=== PATIENT | female | born 1990 | race Asian ===

== ENCOUNTER 2018-04-05 07:48 | Outpatient (CLI) | payer OTHER ==
[2018-04-05 12:52] LABS: BASOPHILS % (AUTO) 0.5 %; EOSINOPHILS # (AUTO) 0.3 10^3/uL (0.0-0.7); EOSINOPHILS % (AUTO) 2.8 %; HGB - HEMOGLOBIN 13.1 g/dL (12.0-16.0); LYMPHOCYTES # (AUTO) 2.5 10^3/uL (1.5-3.5); LYMPHOCYTES % (AUTO) 26.4 %; MEAN CORPUSCULAR HEMOGLOBIN 31.7 pg (27.0-31.0); MEAN CORPUSCULAR HGB CONC 34.7 g/dL (32.0-36.0); MEAN CORPUSCULAR VOLUME 91.5 fL (81.0-99.0); MEAN PLATELET VOLUME 8.3 fL (7.9-10.8); MONOCYTES # (AUTO) 0.5 10^3/uL (0.0-1.0); MONOCYTES % (AUTO) 4.9 %; NEUTROPHILS # (AUTO) 6.1 10^3/uL (1.5-6.6); NEUTROPHILS % (AUTO) 65.4 %; PLT - PLATELET COUNT 278 10^3/uL (130-450); RED BLOOD COUNT 4.12 10^6/uL (4.20-5.40); WHITE BLOOD COUNT 9.3 x10^3/uL (4.8-10.8)
[2018-04-05 12:55] LABS: BILIRUBIN,URINE NEGATIVE (NEGATIVE); GLUCOSE, URINE (UA) NEGATIVE (NEGATIVE); KETONES,URINE (UA) NEGATIVE (NEGATIVE); LEUKOCYTE ESTERASE, URINE LARGE (NEGATIVE); NITRITE,URINE NEGATIVE (NEGATIVE); OCCULT BLOOD,URINE TRACE-LYSE (NEGATIVE); PH,URINE 7.5 PH (5.0-7.5); PROTEIN,URINE NEGATIVE (NEGATIVE); UROBILINOGEN,URINE 0.2 (NORMAL) E.U./dL (NORMAL)
[2018-04-05 13:13] LABS: CLARITY,URINE CLOUDY (CLEAR); RBC,URINE 0-5 /HPF (0-5)
[2018-04-05 13:14] LABS: AMORPHOUS SEDIMENT,UR Few /LPF; BACTERIA,URINE Few /HPF (None Seen); SQUAMOUS EPITHELIAL CELL,UR MANY Squamous (<= Few)
[2018-04-06 14:52] LABS: HIV AG/AB 4TH GEN NON-REACTIVE (NON-REACTIVE)
[2018-04-06 15:15] LABS: HEPATITIS B SURFACE ANTIGEN NON-REACTIVE (NON-REACTIVE); HEPATITIS C ANTIBODY NON-REACTIVE (NON-REACTIVE)
== END 2018-04-05 07:49 | disposition home or self-care (01) ==
LOC: LAB.WCP 07:48
PROVIDERS: ATTEND Nurse Practitioner Obstetrics & Gynecology
DX: Z36.9 Encounter for antenatal screening, unspecified (principal)
CPT/HCPCS: 36415; 81001; 81599; 85025; 86592; 86762; 86803; 86850; 86900; 86901; 87340; 87389

== ENCOUNTER 2018-06-28 12:33 | Outpatient (CLI) | payer OTHER ==
--- NOTE | 2018-06-28 15:37 | Ultrasound Report ---
Reason: ENCTR FOR SCREENING Procedure Date: 06/28/2018 Accession Number: [id number] / [id number] Procedure: US - OB Detailed Eval CPT Code: FULL RESULT: EXAM: COMPLETE OBSTETRICAL ULTRASOUND EXAM DATE: 06/28/2018 01:04 PM. CLINICAL HISTORY: anatomic survey. COMPARISON: None. TECHNIQUE: Real-time sonographic evaluation of the fetus performed by the vegetable vendor. Multiple apprenticeship training representative static images were saved for review. DATING: EGA 22 weeks 2 days with MELINDA 10/30/2018 based on last menstrual period as provided on the order. EGA 21 weeks 3 days with MELINDA 11/05/2018 based on the current ultrasound. GENERAL EVALUATION Mcmahon . Cardiac activity: 152 bpm. movement: Visualized. Presentation: Variable Placenta: Anterior position. No evidence for previa. Umbilical cord: 3 vessel cord. Central placental cord origin. Amniotic fluid: 13.1 MVP 3.6 cm. BIOMETRY Bi-Parietal Diameter (BPD): 5 cm, 21 weeks 2 days Head Circumference (HC): 19.4 cm, 21 weeks 4 days Abdominal Circumference (AC): 16.3 cm, 21 weeks and 3 days Femur Length (FL): 3.6 cm, 21 weeks and 4 days Estimated Weight: 425 gm, 12th percentile for 22 weeks 2 days. ANATOMY The intracranial structures, profile, face/nose/lips, spine, 4 chamber heart and outflow tracts, stomach, abdominal wall and cord insertion, diaphragm, kidneys, bladder, and extremities were visualized and demonstrate no abnormality. MATERNAL STRUCTURES Uterus: Unremarkable. Cervix: Long and closed. Transabdominal length 5.8 cm. Right ovary/adnexa: Unremarkable. Left ovary/adnexa: Unremarkable. Free fluid: None. IMPRESSION: 1. Mcmahon live intrauterine with gestational age 21 weeks and 3 days based on the current ultrasound which does not match the estimated gestational age based on the provided last menstrual period alone. 2. Correlate today's estimated weight and sonographic age to the established due date/potentially available first trimester dating ultrasound to determine absence or presence of appropriate growth. 3. Normal anatomic survey. No anatomic abnormalities are detected at this time. RADIA
== END 2018-06-28 12:34 | disposition home or self-care (01) ==
LOC: DI 12:33
PROVIDERS: ATTEND Nurse Practitioner Obstetrics & Gynecology
DX: Z36.9 Encounter for antenatal screening, unspecified (principal); Z3A.21 21 weeks gestation of pregnancy
CPT/HCPCS: 76811

== ENCOUNTER 2018-07-26 10:10 | Outpatient (CLI) | payer OTHER ==
[2018-07-26 19:06] LABS: HGB - HEMOGLOBIN 12.9 g/dL (12.0-16.0); MEAN CORPUSCULAR HEMOGLOBIN 33.5 pg (27.0-31.0); MEAN CORPUSCULAR HGB CONC 34.1 g/dL (32.0-36.0); MEAN CORPUSCULAR VOLUME 98.2 fL (81.0-99.0); MEAN PLATELET VOLUME 7.9 fL (7.9-10.8); RED BLOOD COUNT 3.85 10^6/uL (4.20-5.40); RED CELL DISTRIBUTION WIDTH 13.4 % (12.0-15.0); WHITE BLOOD COUNT 12.7 x10^3/uL (4.8-10.8)
== END 2018-07-26 10:11 | disposition home or self-care (01) ==
LOC: LAB.WCP 10:10
PROVIDERS: ATTEND Nurse Practitioner Obstetrics & Gynecology
DX: Z36.9 Encounter for antenatal screening, unspecified (principal)
CPT/HCPCS: 36415; 82950; 85025; 85027; 86850

== ENCOUNTER 2018-10-11 08:00 | Outpatient (CLI) | payer OTHER | END 2018-10-11 23:59 | disposition home or self-care (01) | LOC: LAB.R 08:00 | PROVIDERS: ATTEND Registered Nurse | DX: Z33.1 Pregnant state, incidental (principal) | CPT/HCPCS: 87491; 87591; 87797 ==

== ENCOUNTER 2018-10-11 08:42 | Outpatient (CLI) | payer OTHER ==
[2018-10-12 12:26] LABS: HEPATITIS C ANTIBODY NON-REACTIVE (NON-REACTIVE); HIV AG/AB 4TH GEN NON-REACTIVE (NON-REACTIVE)
== END 2018-10-11 23:59 | disposition home or self-care (01) ==
LOC: LAB.WCP 08:42
PROVIDERS: ATTEND Registered Nurse
DX: Z33.1 Pregnant state, incidental (principal)
CPT/HCPCS: 36415; 81599; 86803; 87389

== ENCOUNTER 2018-10-31 23:35 | Inpatient (IN) | payer OTHER, MEDICAID ==
[2018-11-01] MEDS ORDERED: LACTATED RINGERS 1,000 ML IV ONE (00:31)
[2018-11-01 01:03] LABS: BASOPHILS # (AUTO) 0.2 10^3/uL (0.0-0.1); BASOPHILS % (AUTO) 1.6 %; EOSINOPHILS # (AUTO) 0.3 10^3/uL (0.0-0.7); EOSINOPHILS % (AUTO) 2.5 %; HGB - HEMOGLOBIN 13.9 g/dL (12.0-16.0); LYMPHOCYTES # (AUTO) 2.2 10^3/uL (1.5-3.5); MEAN CORPUSCULAR HEMOGLOBIN 33.8 pg (27.0-31.0); MEAN CORPUSCULAR HGB CONC 34.9 g/dL (32.0-36.0); MEAN CORPUSCULAR VOLUME 96.9 fL (81.0-99.0); MEAN PLATELET VOLUME 8.1 fL (7.9-10.8); MONOCYTES # (AUTO) 0.9 10^3/uL (0.0-1.0); MONOCYTES % (AUTO) 7.1 %; NEUTROPHILS # (AUTO) 9.4 10^3/uL (1.5-6.6); NEUTROPHILS % (AUTO) 71.8 %; PLT - PLATELET COUNT 278 10^3/uL (130-450); RED BLOOD COUNT 4.12 10^6/uL (4.20-5.40); RED CELL DISTRIBUTION WIDTH 12.6 % (12.0-15.0); WHITE BLOOD COUNT 13.1 x10^3/uL (4.8-10.8)
[2018-11-01] MEDS ORDERED: OXYTOCIN/SODIUM CHLORIDE 500 ML IV ONE (01:29)
[2018-11-01] MEDS: LACTATED RINGERS 1,000 ML IV SCH ×4 (01:32→11:25)
[2018-11-01] MEDS ORDERED: ROPIVACAINE 0.2% PF 20 ML AMPULE ONE (02:15)
[2018-11-01] MEDS ORDERED: fentaNYL 100 MCG/2 ML VIAL ONE ×2 (02:16→13:39)
[2018-11-01] MEDS ORDERED: SODIUM CHLORIDE 0.9% 250 ML IV ONE (02:17)
[2018-11-01] MEDS: OXYTOCIN/SODIUM CHLORIDE 500 ML IV SCH ×2 (02:44→17:31)
[2018-11-01] MEDS ORDERED: fentaNYL 250 MCG/5 ML VIAL ONE (02:52)
[2018-11-01] MEDS ORDERED: BUPIVACAINE 0.75% MPF 30 ML VIAL ONE (02:53)
[2018-11-01] MEDS ORDERED: fent/BUPIV 2 MCG/0.125% 250 ML EP PRN (03:14)
[2018-11-01] MEDS ORDERED: ONDANSETRON 4 MG/2 ML VIAL IVP PRN (03:14)
[2018-11-01] MEDS ORDERED: ePHEDrine 50 MG/ML VIAL IVP PRN (03:14)
[2018-11-01] MEDS ORDERED: METOCLOPRAMIDE 10 MG/2 ML VIAL IVP PRN (03:14)
[2018-11-01] MEDS ORDERED: diphenhydrAMINE INJ 50 MG/ML VIAL IVP PRN (03:14)
[2018-11-01] MEDS ORDERED: NALOXONE 0.4 MG/ML VIAL IVP PRN (03:14)
[2018-11-01] MEDS ORDERED: LACTATED RINGERS 500 ML IV ONE (03:14)
[2018-11-01] MEDS ORDERED: NALBUPHINE 10 MG/ML AMP IVP PRN (03:14)
--- NOTE | 2018-11-01 03:14 | ANESTHESIA ---
Pre-Anesthesia VS, & Labs - Diagnosis term labor, IUP - Procedure CANDELARIA placement Vital Signs: Temp Pulse Resp BP Pulse Ox 37.1 C 89 18 112/75 100 11/01/18 00:01 11/01/18 00:01 11/01/18 00:01 11/01/18 00:01 11/01/18 00:01 Height 5 ft 3 in Weight (kg) 65.136 kg - NPO >8 hours Last Fluid Intake: t/o day - Is Patient ?: Yes - Lab Results Current Lab Results: Laboratory Tests 11/01/18 00:50: WBC 13.1 H, RBC 4.12 L, Hgb 13.9, Hct 39.9, MCV 96.9, MCH 33.8 H , MCHC 34.9, RDW 12.6, Plt Count 278, MPV 8.1, Neut # (Auto) 9.4 H, Lymph # (Auto) 2.2, Dickson # (Auto) 0.9, Eos # (Auto) 0.3, Baso # (Auto) 0.2 H, Absolute Nucleated RBC 0.01, Nucleated RBC % 0.1 Lab results reviewed: Yes Fish Bones: 11/01/18 00:50 Home Medications and Allergies Active Medications Lactated Ringer's (Lr) 1,000 mls @ 150 mls/hr IV .Q6H40M ALEXIS Last Admin: 11/01/18 02:36 Dose: 150 mls/hr Oxytocin/Sodium Chloride (Pitocin/Sodium Chloride) 500 mls @ 1 mls/hr IV TITR ALEXIS; Protocol Last Admin: 11/01/18 02:44 Dose: 1 milliunit/min, 1 mls/hr Sodium Chloride (Normal Saline Flush 0.9%) 10 ml IVP PRN PRN PRN Reason: NEEDED PER PROVIDER ORDERS Anes History & Medical History - Anesthetic History Anesthesia Complications: reports: No previous complications Family history of Anesthesia Complications: Denies Family history of Malignant Hyperthermia: Denies - Medical History Smoking Status: Never smoker Exam General: Alert, Oriented x3, Cooperative Dental: WNL Mouth Openin Fingerbreadth Neck Mobility: Normal Mallampati classification: II Thyromental Distance: 4-6 cm Respiratory: No respiratory distress Cardiovascular: Regular rate Neurological: Normal speech Mental/Cognitive Status: Alert/Oriented X3, Normal for patient Plan Anesthesia Type: Epidural Consent for Procedure(s) Verified and Reviewed: Yes Code Status: Attempt Resuscitation ASA classification: 2-Mild systemic disease Is this case an emergency?: No
--- NOTE | 2018-11-01 04:38 | HISTORY & PHYSICAL EXAMINATION ---
Admit History - Visit Reason Visit Reason: Bloody show - : 2 Parity: 1 Premature: 0 Ectopic: 0 : 0 Care: positive: [facility] Risk/History: positive: None Complications This : positive: None Smoking Status: Never smoker - Mother's Labs Mother's Blood Type: positive: A Mother's RH: positive: Positive GBS: positive: Group B Step Negative Rubella Status: positive: Immune Meds/Allgy - Allergies Allergies/Adverse Reactions: Allergies Allergy/AdvReac Type Severity Reaction Status Date / Time No Known Drug Allergies Allergy Verified 11/01/18 04:00 Review of Systems - Constitutional Constitutional: denies: Fatigue, Fever, Chills, Malaise, Weakness - Eyes Eyes: denies: Pain, Blurred vision, Spots in vision, Dipolpia - Cardiovascular Cariovascular: denies: Irregular heart rate, Palpitations, Chest pain, Edema - Respiratory Respiratory: denies: Cough, Wheezing, SOB at rest, SOB with exertion - Gastrointestinal Gastrointestinal: denies: Abdominal pain, Constipation, Diarrhea, Change in bowel habits - Integumentary Integumentary: denies: Rash, Pruritis - Neurological Neurological: denies: Headache - Psychiatric Psychiatric: denies: Depression, Anxiety Physical - Abdominal Exam Vital Signs: Temp Pulse Resp BP Pulse Ox 37.1 C 89 18 112/75 100 11/01/18 00:01 11/01/18 00:01 11/01/18 00:01 11/01/18 00:01 11/01/18 00:01 Contraction Frequency (min/apart): 2-3 Contraction Intensity: positive: Moderate Uterine Resting Tone: positive: Soft - Monitoring Heart Rate Baseline: 150 Strip Review: positive: Category I - Presentation Presentation: positive: Vertex - Vaginal Exam Membranes: positive: Membranes intact Dilation (in cm): 2 Effacement (%): 70 Station: positive: -3 Cervical Position: positive: Posterior - Speculum Exam Speculum Exam Performed: positive: No Plan for Labor - Plan For Labor I expect patient to be DC'd or transferred within 96 hours.: Yes Plan for Labor: HPI: This 27yo @ 40.1wks gestation phones through the answering service at approximately 2250 on 10/31/2018 with c/o large amount of bright red vaginal bleeding. She was instructed to present to labor and delivery. She arrived to [facility] at 2350 and was noted to be 2-3/70/unengaged, posterior, vertex. No obvious vaginal bleeding noted and pt states with initial call she thought the bleeding appeared more since it was in the toilet but it did make her nervous. She reports +FM and denies leakage of fluid. She denies HATFIELD, visual disturbances, RUQ or epigastric pain. She was found to contract every 2 minutes with soft resting tone and pt rates the contractions 7/10 on a pain scale. FHR baseline 150s, moderate variability, + accels, no decels. Recheck 1 hour later reveals unchanged cervix. Contraction frequency decreased to every 4-6 and patient requests labor augmentation secondary to full term gestation, discomfort, and current weather conditions. In addition, she requests an epidural prior to initi ation of any further intervention. She was admitted to [facility] for active management. She has received regular care with [facility] through the duration of her . She presented at 8wks gestation at which time her dating was confirmed by limited bedside ultrasound which was c/w LMP dating. Her has been uncomplicated. Dating criteria: 1. LMP: Sure - 02/17/2018 2. First ultrasound: 03/19/2018 @ 8wks gestation - agrees OB Hx: G1: 2011, Female, 7lbs 6 oz, G2: Current PMHx: No significant Surgical Hx: none Family Hx: no significant Social hx: never smoker, no ETOH or IVDA. Works at [employer]. . Last pap 08/09/2018 WNL, GC/CT negative. No Hx abnormal. Medications: vitamin Allergies: NKDA Immunizations: Influenza 06/14/2018 Tdap 08/09/2018 Labs: A+, antibody neg Hgb 13.1; Hct 37.7; PLT 278 Hep B neg RPR neg Hep C neg Rubella immune HIV negative GC/CT neg 28wk labs: 1 hour GTT 114 Hgb 12.9 Antibody neg 36wk labs: GBS neg GC/CT neg HIV nonreactive HSV 1&2 - neg Hep C neg RPR non-reactive Ultrasounds: 03/19/2018 @ 8wks gestation c/w LMP dating 06/28/2018 FAS WNL; Anterior placenta, no previa. 3VC. GABI WNL. Physical Exam: Normocephalic, atraumatic EOM intact Heart RRR w/o M/G/R Lungs CTAB Abdomen gravid, soft and nontender; EFW 3000g Bilateral LE's no edema A: 27yo @ 40.2wks gestation by L=8wk U/S Early labor GBS negative FHT Category I [place] Score 7 P: Admit for augmentation of labor Anesthesia notified for epidural placement per maternal request Augment with pitocin.] Continuous monitoring Anticipate spontaneous vaginal delivery
[2018-11-01] MEDS: SODIUM CHLORIDE FLUSH 0.9% 10 ML SYRINGE IVP PRN ×3 (05:10→21:51)
[2018-11-01] MEDS ORDERED: ePHEDrine 50 MG/ML VIAL IVP ONE (05:10)
--- NOTE | 2018-11-01 05:48 | PROVIDER PROGRESS NOTE ---
Subjective - Subjective Subjective: S: Laying in bed comfortable with epidural. Intermittent episodes of dizziness secondary to low BP. She denies N/V. , mother in law, and daughter supportive at the bedside. Has been able to sleep intermittently. Mood is good. O: BP previously hypotensive: 88/58, 72/45 with little response to IV fluid bolus. Anesthesia notified and provided orders for administration of IV ep hedrine with improvement in BP to 111/69, 107/70. HR 116. FHR baseline 145, moderate variability, + accels, one isolated variable deceleration, one late deceleration prior to administration of ephedrine - overall reassuring. Contractions palpate moderate-strong every 3-7 minutes last 50-110 seconds with soft resting tone. SVE 0540 2-3/70/-3, soft, vertex, BOW intact A: 27yo @ 40.2wks gestation by L=8wk U/S Augmentation of labor with Pitocin - infusing at 3mU/mL currently GBS neg FHT Category I BOW intact P: Continuous monitoring Epidural for pain management Encouraged position changes/rotation in bed Purcell catheter placed. Anticipate spontaneous vaginal delivery. Will sign out to on-coming correctional supervisor Ann CENTENO @ 0700am. Objective - Vital Signs/Intake & Output Vital Signs: Vital Signs x48h Temp Pulse Resp BP Pulse Ox 11/01/18 00:01 37.1 C 89 18 112/75 100 10/31/18 23:48 37.1 C 89 18 112/75 100 Intake & Output: Intake & Output 10/29/18 10/30/18 10/31/18 11/01/18 23:59 23:59 23:59 23:59 Intake Total 527.5 Output Total 350 Balance 177.5 - Lab Results Fish Bones: 11/01/18 00:50 Other Labs: Lab Results x24hrs 11/01/18 Range/Units 00:50 WBC 13.1 H (4.8-10.8) x10^3/uL RBC 4.12 L (4.20-5.40) 10^6/uL Hgb 13.9 (12.0-16.0) g/dL Hct 39.9 (37.0-47.0) % MCV 96.9 (81.0-99.0) fL MCH 33.8 H (27.0-31.0) pg MCHC 34.9 (32.0-36.0) g/dL RDW 12.6 (12.0-15.0) % Plt Count 278 (130-450) 10^3/uL MPV 8.1 (7.9-10.8) fL Neut # (Auto) 9.4 H (1.5-6.6) 10^3/uL Lymph # (Auto) 2.2 (1.5-3.5) 10^3/uL Lynn # (Auto) 0.9 (0.0-1.0) 10^3/uL Eos # (Auto) 0.3 (0.0-0.7) 10^3/uL Baso # (Auto) 0.2 H (0.0-0.1) 10^3/uL Absolute Nucleated RBC 0.01 x10^3/uL Nucleated RBC % 0.1 /100WBC
--- NOTE | 2018-11-01 09:28 | PROVIDER PROGRESS NOTE ---
Labor Progress Note - Uterine Monitoring Uterine Monitoring Mode: positive: IUPC (placed w/o incident to allow appropriat e titration of Pitocin infusion; baseline 15mmHg, peak 50mmHg, UCs occurring q2- 3 min; MVU presently 135) Contraction Intensity: positive: Mild Uterine Resting Tone: positive: Soft - Monitoring Monitor Mode: positive: External ultrasound Heart Rate Baseline: 145 Heart Rate Variability: positive: Moderate (6-25 bmp) Accelerations: positive: Present, 15x15 Decelerations: positive: None - Vaginal Exam Dilation (in cm): 2-3 Effacement (%): 50 Station: -3 Cervical Position: Midposition - Labor Progress Note Labor Progress Note/Additional Text: S: Liliane is comfortable w/ her epidural in place. She denies discomfort. She denies any sensation of pressure. She has been able to rest some since insertion. Her family is present @ the bedside & is involved & supportive. O: AAOx3, NAD WA gravid female VS: HR 108bpm, RR 20 BP 90/51 SPO2 100% EFM BL 145bpm, +accels, no decels, mod marcelo TOCO registering UCs q2-3 minutes on 6mU/min of Pitocin; no cervical change per RN report SVE by me: 2-3/50/-3, copious bloody vaginal d/c w/ leakage of blood-tinged fluid, apparent SROM IUPC placed w/o incident: Baseline 15mmHg, peak 50mmg; UCs occurring q 2-3 minutes, MVU presently 120-135 A: 27 y/o @ 40w2d, erratic uterine contractions, Pitocin induction of labor, no cervical change since admission w/ slow titration of Pitocin to achieve adequate contraction pattern by tocometry Inadequate uterine contractions by MVU on 6mU/min of Pitocin Vaginal bleeding w/ no evidence of distress FHTs cat I Adequate pain control w/ epidural anesthesia GBS negative, SROM x30 minutes P: 1. Continue to titrate Pitocin infusion per protocol to achieve adequate labor by MVU 2. Once MVU =/> 200 x2 consecutive hours, reassess cervical status; earlier PRN indication 3. Reviewed optimal maternal positioning to encourage descent & encouraged maternal rest. 4. Type & Screen & repeat CBC to ensure hemodynamic stability in light of vaginal bleeding 5. Reviewed plan of care w/ pt, family & RN @ bedside; all in agreement, without concerns.
--- NOTE | 2018-11-01 09:41 | PROVIDER PROGRESS NOTE ---
Labor Progress Note - Labor Progress Note Labor Progress Note/Additional Text: Discussed pt clinical scenario w/ Dr. Gwyn Rosen DO. Reviewed vaginal bleeding & my concern for abruption. He will consent pt for delivery in the event that FHTs become less reassuring or pt has more profuse bleeding. Recommends crossmatch 2units of RBCs and insertion of 2nd 18g IV. Reviewed inadequate contraction pattern w/ RN & reviewed protocol for titrating Pitocin infusion by MVU. CBC ordered & pending.
[2018-11-01 10:14] LABS: BASOPHILS # (AUTO) 0.1 10^3/uL (0.0-0.1); BASOPHILS % (AUTO) 0.5 %; EOSINOPHILS % (AUTO) 0.2 %; HGB - HEMOGLOBIN 13.2 g/dL (12.0-16.0); LYMPHOCYTES # (AUTO) 2.7 10^3/uL (1.5-3.5); LYMPHOCYTES % (AUTO) 20.1 %; MEAN CORPUSCULAR HEMOGLOBIN 33.7 pg (27.0-31.0); MEAN CORPUSCULAR HGB CONC 35.1 g/dL (32.0-36.0); MEAN CORPUSCULAR VOLUME 96.2 fL (81.0-99.0); MONOCYTES # (AUTO) 0.6 10^3/uL (0.0-1.0); MONOCYTES % (AUTO) 4.8 %; NEUTROPHILS # (AUTO) 9.8 10^3/uL (1.5-6.6); NEUTROPHILS % (AUTO) 74.4 %; PLT - PLATELET COUNT 247 10^3/uL (130-450); RED BLOOD COUNT 3.92 10^6/uL (4.20-5.40); RED CELL DISTRIBUTION WIDTH 12.6 % (12.0-15.0); WHITE BLOOD COUNT 13.2 x10^3/uL (4.8-10.8)
--- NOTE | 2018-11-01 10:24 | PROVIDER PROGRESS NOTE ---
Labor Progress Note - Uterine Monitoring Uterine Monitoring Mode: positive: IUPC Contraction Frequency (min/apart): UCs q 2-3 minutes, baseline 15mmHg, peak 65mmHg w/ 8mU/min Pitocin infusing - Monitoring Monitor Mode: positive: External ultrasound Heart Rate Baseline: 145 Heart Rate Variability: positive: Moderate (6-25 bmp) Accelerations: positive: Present, 15x15 Decelerations: positive: None Strip Review: positive: Category I - Vaginal Exam Dilation (in cm): deferred; no indication - Labor Progress Note Labor Progress Note/Additional Text: Reviewed CBC: H/H stable w/ no significant decrease in Hct; vaginal bleeding presently stable. VSS w/o s/sx maternal hemodynamic compromise. FHTs remain consistently Cat I & uterine contraction pattern is improving w/ appropriate titration of Pitocin per IUPC, although the contraction pattern is not yet adequate by MVU. Will continue to monitor w/ no indication for additional intervention @ this time. Adequate pain control w/ epidural anesthesia, SROM x 1 .5 hours, GBS neg.
[2018-11-01] MEDS ORDERED: BUPIVACAINE 0.25% PF 10 ML VIAL ONE (13:40)
--- NOTE | 2018-11-01 13:43 | PROVIDER PROGRESS NOTE ---
Subjective - Prog Note Date Prog Note Date: 11/01/18 (TICKER INSTALLER STAFF) Prog Note Time: 11:57 - Subjective Subjective: TICKER INSTALLER SHEET TURNER: Patient is a 28 yo EDC 10/30/18 EGA 40 2/7 weeks admitted early this AM in latent labor at 2-3 cm dilation by CNM donor recruitment manager. Patient is undergoing augmentation of labor. Shortly after admission noted to have handful of blood and clots on exam by CNM per RN report. JACOBO King assumed the CNM management of the patient later this AM. She approached me at 0940 hours in the provider's office to update me on this patient as follows. According the JACOBO King, the patient has just had a second similar episode of vaginal bleeding at the time of cervical examination. SROM with bloody show occurred at 0850 at which time the cervical exam was 2-3/50/-3. At 0940 when approached by JACOBO King, the patient was on 8 miU of pitocin and approaching 180- 200 [place] units, with an IUPC placed by her. The patient also already has an epidural and adhikari catheter in place. The patient's vital signs are stable and the tracing is currently category I. Admission HCt was 39% with a second CBC result pending. JACOBO King was concerned that the patient may be having a small abruption, and I agree, given the above clinical picture. I made the following recommendations to her which are standard and appropriate measures for a patient with active uterine bleeding from an abruption in labor: 1) Start a second IV (this had not been done yet) 2) Convert from a Type and Screen to Type and Cross x 2 units 3) Have me evaluate the patient myself to better assess the clinical picture 4) Have me educate the patient (with Christine present) regarding her current clinical status, as well as correctional substance abuse counselor & consent her for a possible if the maternal or condition became unstable. Janet, the patient's RN then showed up at the office and I went over the above recommendations with her. JACOBO King made no comment to the contrary, as I would expect given these are standard procedures in a high risk case like this. Given this complicated OB patient in early labor and apparent mild abruption, with multiple providers involved in her care since admission, after discussion with Yasmeen Gonzalez (Chief RN over OB inpatient services) and Nahomi Spencer (Chief Nurse for the hospital), I have assumed full obstetrical management the patient at the direction of Alice Tj. At 1100 hours I introduced myself to the patient and her family and explained to them that I am the OB donor recruitment manager and responsible for her, to which she voiced both understanding and agreement. I updated the patient on her condition to which she and her family voiced understanding. By this time a repeat CBC has returned with a HCT of 37%. There is a category I tracing with adequate uterine contractions on 12 miU of pitocin and 190-230 [place] units. On cervical exam the patient was noted to be 4/50/-3 with a posterior forebag that underwent AROM by me with an additional 125 cc blood loss and some blood tinged fluid as well. Based on the history I have been given and the blood loss seen by me, I estimate the current total EBL to be approx 400 mL. The AROM of the forebag by me, as well as placement of an FSE due to difficulty with continuous monitoring, took place at 11:16 AM. Pelvis is adequate and Leopolds is 7 to 7 1/2 lbs. The patient has been instructed to let the RN know if she feels any further bleeding. I have notified the OR about this case in the possibility we may have to do an urgent or emergent . At 1325 hours the patient's RN reported to me that the patient cervical exam, at my instruction, is now 5/50/high by her exam. The patient continues to have an adequate contraction pattern and catergory I tracing. Only one small clot for further bleeding. Bother mother and fetus doing well. ANS has just been contacted to re-dose the epidural catheter. Dr. Fournier, the Chief for surgical services, happened to be on L&D at 1327 hours and has been updated on this case as well. As a courtesy, I will also notify peds. Impression/Plan: - 40 2/7 weeks EGA in labor undergoing pitocin augmentation of labor. -Presumed small placental abruption with an EBL of 300-400 mL thus far, currentl y no active bleeding -Patient is hemodynamically stable with last HCT 37% -Regular and normal uterine contraction pattern and Category I FHR tracing throughout, IUP, FSE, and Epidural in place with adhikari, GBS Neg. -Adequate pelvis and Leopolds 7 to 71/2 lbs. -Continue present care to attempt to achieve . - Patient has second IV, is Type and Crossed, and counseled an consented for C/S in case of need to do so for maternal or compromise. OR notified. Will notify Peds. next. -All questions answered to patient and family satisfaction. Objective - Vital Signs/Intake & Output Intake & Output: Intake & Output 10/29/18 10/30/18 10/31/18 11/01/18 23:59 23:59 23:59 23:59 Intake Total 1475.0 Output Total 800 Balance 675.0 - Lab Results Fish Bones: 11/01/18 09:53 Other Labs: Lab Results x24hrs 11/01/18 11/01/18 11/01/18 Range/Units 10:23 09:53 00:50 WBC 13.2 H 13.1 H (4.8-10.8) x10^3/uL RBC 3.92 L 4.12 L (4.20-5.40) 10^6/uL Hgb 13.2 13.9 (12.0-16.0) g/dL Hct 37.7 39.9 (37.0-47.0) % MCV 96.2 96.9 (81.0-99.0) fL MCH 33.7 H 33.8 H (27.0-31.0) pg MCHC 35.1 34.9 (32.0-36.0) g/dL RDW 12.6 12.6 (12.0-15.0) % Plt Count 247 278 (130-450) 10^3/uL MPV 8.0 8.1 (7.9-10.8) fL Neut # (Auto) 9.8 H 9.4 H (1.5-6.6) 10^3/uL Lymph # (Auto) 2.7 2.2 (1.5-3.5) 10^3/uL Phelps # (Auto) 0.6 0.9 (0.0-1.0) 10^3/uL Eos # (Auto) 0.0 0.3 (0.0-0.7) 10^3/uL Baso # (Auto) 0.1 0.2 H (0.0-0.1) 10^3/uL Absolute Nucleated RBC 0.00 0.01 x10^3/uL Nucleated RBC % 0.0 0.1 /100WBC Blood Type A POSITIVE Antibody Screen NEGATIVE Crossmatch IS Only See Detail Assessment/Plan - Problem List (1) 40 weeks gestation of Impression: See Above.
--- NOTE | 2018-11-01 13:46 | ANESTHESIA PROCEDURE NOTE ---
Anesthesia Epidural Template - Exam Epidural Medication Information: Epidural Medications Medication fentanyl/bupivicaine Continuous Infusion Rate (mL/ 12 hr) Demand Dose Setting 4 Infused Amount 39 - Other Comments Other Comments: Called by RN for patient complaints of pain with contractions. Patient has a t-6 level and describes pressure/cramping in lower pelvis. A total of 5ml 0.25% bupivicaine plus 100mcg of fentanyl was given via epidural in a divided dose. Will reevaluate pain.
--- NOTE | 2018-11-01 15:36 | PROVIDER PROGRESS NOTE ---
Labor Progress Note - Labor Progress Note Labor Progress Note/Additional Text: Pt care transferred to bobbin collector on-call, Dr. Gwyn Rosen DO, per DIOR Sahu, Talia Gonzalez RN, and Dr. Atilio Fournier MD. Pt to be apprised of circumstance and clinical decision-making by those presently coordinating her care.
[2018-11-01] MEDS ORDERED: METHYLERGONOVINE 0.2 MG/ML AMP ONE (15:40)
[2018-11-01] MEDS ORDERED: miSOPROStol 100 MCG TABLET ONE (15:41)
[2018-11-01] MEDS ORDERED: LIDOCAINE-MPF 1% 30 ML VIAL ONE ×2 (15:54→19:39)
[2018-11-01] MEDS ORDERED: HYDROcod/ACETAM 5/325 MG TABLET PO PRN (17:21)
[2018-11-01] MEDS ORDERED: LACTATED RINGERS 1,000 ML IV SCH (18:00)
[2018-11-01] MEDS: IBUPROFEN 800 MG TABLET PO SCH (18:01)
[2018-11-01] MEDS: ACETAMINOPHEN 325 MG TABLET PO PRN ×2 (18:01→23:07)
[2018-11-01 19:48] LABS: BASOPHILS % (AUTO) 0.5 %; EOSINOPHILS % (AUTO) 0.1 %; HGB - HEMOGLOBIN 12.9 g/dL (12.0-16.0); LYMPHOCYTES % (AUTO) 7.1 %; MEAN CORPUSCULAR HEMOGLOBIN 32.9 pg (27.0-31.0); MEAN CORPUSCULAR HGB CONC 33.1 g/dL (32.0-36.0); MEAN CORPUSCULAR VOLUME 99.4 fL (81.0-99.0); MEAN PLATELET VOLUME 7.6 fL (7.9-10.8); MONOCYTES % (AUTO) 5.6 %; NEUTROPHILS % (AUTO) 86.7 %; PLT - PLATELET COUNT 242 10^3/uL (130-450); RED CELL DISTRIBUTION WIDTH 12.7 % (12.0-15.0); WHITE BLOOD COUNT 22.9 x10^3/uL (4.8-10.8)
[2018-11-01 20:18] LABS: PLATELET MORPHOLOGY NORMAL APPEARANCE (NORMAL); RBC MORPHOLOGY (MULTIPLE) NORMAL APPEARANCE (NORMAL)
[2018-11-01 20:19] LABS: DIFFERENTIAL COMMENT MANUAL=AUTO DIFF; PLATELET ESTIMATE, MANUAL NORMAL (130-450,000) (NORMAL)
[2018-11-01] MEDS: DOCUSATE SODIUM 100 MG CAPSULE PO SCH (21:05)
--- NOTE | 2018-11-01 21:21 | PROCEDURE REPORT ---
Hospitalist Procedure Note - Procedure Note Procedure Note: Vacuum Delivery Note: Vacuum Used: Kiwi Position: JEANINE, no rotation Station: 3+ (Low Vacuum Delivery) ANS: Epidural Indication: Poor Maternal Pushing, Intermittent FHR Decelerations Comments: The Patient progressed to C/C/0 by my exam at 1604 hours, at which time she was instructed to push with me present in the room the entire time. During pushing there were intermittent FHR decels down to mid to high 80s with sometimes slow return to baseline. O2 by mask was started until delivery. She progressed to C/C/+3 with sub-optimal pushing effort. Given above situation, she was informed verbally about vacuum delivery and agreed to such. Kiwi vacuum was applied with suction on in green zone during pushing only. In three consecutive contractions, kiwi was used to effect vaginal delivery of viable male infant with 7/8, weight pending. Segment of cord obtained for gases. Peds present. Cord clamped and cut after approx 30 seconds while baby on maternal abdomen. Segment of cord obtained for gases and cord blood drawn. IV pitocin started. delivered at 1705 hours. Placenta delivered spontaneously at 1709 hours. canal inspected and patient noted to have 2" right superficial sidewall laceration near at introitus repaired with running 3-0 vicryl. No cervical lacs noted. Noted to have 2nd degree midline perineal laceration repaired with 3-0 vicryl in layers with 10 mL of 1% lidocaine used in addition to epidural. Note: Patient had EBL of 400 ML during labor due to presumed marginal placental abruption. She had an addition 100 mL EBL prior to delivery of . EBL post- delivery was 300 mL for a total EBL of 800 mL. The placenta was inspected by me and did appear in fact to have a 10 cm x 2 cm marginal abruption consistent with clinical course. Placenta was not sent to pathology as this would not manager change. Post-delivery HCT 38%. Mother and baby doing well. Patient will get repeat CBC in AM. SBAR given by phone to Dr. Macdonald with Postal Transportation Clerk Lissa MONAHAN, RN present. I informed Dr. Macdonlad that I would manage this patient exclusively until she is discharged home and voiced understanding. Nursing order placed in EHR informing nursing of the same.
[2018-11-02] MEDS: IBUPROFEN 800 MG TABLET PO SCH ×3 (02:09→20:16)
[2018-11-02] MEDS: ACETAMINOPHEN 325 MG TABLET PO PRN ×3 (03:21→20:17)
[2018-11-02 05:38] LABS: BASOPHILS # (AUTO) 0.1 10^3/uL (0.0-0.1); BASOPHILS % (AUTO) 0.5 %; EOSINOPHILS # (AUTO) 0.2 10^3/uL (0.0-0.7); HGB - HEMOGLOBIN 11.9 g/dL (12.0-16.0); LYMPHOCYTES # (AUTO) 3.2 10^3/uL (1.5-3.5); LYMPHOCYTES % (AUTO) 16.6 %; MEAN CORPUSCULAR HEMOGLOBIN 33.8 pg (27.0-31.0); MEAN CORPUSCULAR HGB CONC 34.3 g/dL (32.0-36.0); MEAN CORPUSCULAR VOLUME 98.5 fL (81.0-99.0); MEAN PLATELET VOLUME 7.3 fL (7.9-10.8); MONOCYTES % (AUTO) 5.1 %; NEUTROPHILS % (AUTO) 76.8 %; PLT - PLATELET COUNT 218 10^3/uL (130-450); RED BLOOD COUNT 3.52 10^6/uL (4.20-5.40); RED CELL DISTRIBUTION WIDTH 12.8 % (12.0-15.0); WHITE BLOOD COUNT 19.5 x10^3/uL (4.8-10.8)
[2018-11-02] MEDS: DOCUSATE SODIUM 100 MG CAPSULE PO SCH ×2 (08:37→20:16)
[2018-11-02] MEDS ORDERED: WITCH HAZEL/GLYCERIN 1 EACH MED..PAD TOP PRN (12:40)
--- NOTE | 2018-11-02 12:46 | PROVIDER PROGRESS NOTE ---
Subjective - Prog Note Date Prog Note Date: 11/02/18 (RELIEF PHARMACIST STAFF) Prog Note Time: 12:43 - Subjective Pt reports feeling: Improved Subjective: Patient feels well, no complaints, requesting saline locks removed if not needed. no heavy bleeding, ambulating and tolerating diet. Objective - Vital Signs/Intake & Output Reviewed Vital Signs: Yes Vital Signs: Vital Signs x48h Temp Pulse Resp BP Pulse Ox 11/02/18 08:50 36.6 C 83 16 102/62 99 Intake & Output: Intake & Output 10/30/18 10/31/18 11/01/18 11/02/18 23:59 23:59 23:59 23:59 Intake Total 3689.783 360 Output Total 2350 Balance 1339.783 360 - Objective General Appearance: positive: No acute distress (ABD SNT Ux Firm, U-4 and NT Normal lochia MS/NM N/C, no calf pain) - Lab Results Fish Bones: 11/02/18 05:26 Other Labs: Lab Results x24hrs 11/02/18 11/01/18 Range/Units 05:26 19:44 WBC 19.5 H 22.9 H (4.8-10.8) x10^3/uL RBC 3.52 L 3.90 L (4.20-5.40) 10^6/uL Hgb 11.9 L 12.9 (12.0-16.0) g/dL Hct 34.6 L 38.8 (37.0-47.0) % MCV 98.5 99.4 H (81.0-99.0) fL MCH 33.8 H 32.9 H (27.0-31.0) pg MCHC 34.3 33.1 (32.0-36.0) g/dL RDW 12.8 12.7 (12.0-15.0) % Plt Count 218 242 (130-450) 10^3/uL MPV 7.3 L 7.6 L (7.9-10.8) fL Neut # (Auto) 15.0 H Not Reportable Lymph # (Auto) 3.2 Not Reportable [place] # (Auto) 1.0 Not Reportable Eos # (Auto) 0.2 Not Reportable Baso # (Auto) 0.1 Not Reportable Absolute Nucleated RBC 0.00 Not Reportable Band Neuts % (Manual) Not Reportable Abnorm Lymph % (Manual) Not Reportable Nucleated RBC % 0.0 Not Reportable Neutrophils # (Manual) Not Reportable Lymphocytes # (Manual) Not Reportable Monocytes # (Manual) Not Reportable Eosinophils # (Manual) Not Reportable Basophils # (Manual) Not Reportable Differential Comment MANUAL=AUTO DIFF Manual Slide Review Indicated Platelet Estimate NORMAL (130-450,000) (NORMAL) Platelet Morphology NORMAL APPEARANCE (NORMAL) RBC Morph Micro Appear NORMAL APPEARANCE (NORMAL) Assessment/Plan - Problem List (2) care and examination Impression: Impression/Plan: PPD #1 s/p Low Vacuum vaginal delivery. Doing well Routine care Anticipate d/c home tomorrow. D/C both saline locks now.
[2018-11-03] MEDS: ACETAMINOPHEN 325 MG TABLET PO PRN ×2 (02:46→07:07)
[2018-11-03] MEDS: IBUPROFEN 800 MG TABLET PO SCH (05:36)
--- NOTE | 2018-11-03 08:18 | Discharge Plan ---
Discharge Plan Disposition: 01 Home, Self Care Diet: Regular Activity Restrictions: SEE NURSING INSTRUCTIONS Shower Restrictions: No Driving Restrictions: Yes (SEE WRITTEN INSTRUCTIONS) Weight Bearing: Full Weight Additional Instructions or Follow Up instructions: FOLLOW UP WITH MARY KRAUSE CNM IN 6 WEEKS No Smoking: If you smoke, Please STOP! Call for help. Follow-up with: Mary Krause CNM, [employer] [Provider Admit Priv/Credential] -
--- NOTE | 2018-11-03 09:21 | DISCHARGE SUMMARY ---
"Discharge Summary Admit Date: 11/01/18 Discharge Date: 11/03/18 Discharging Provider: Silas Code Status: Attempt Resuscitation Condition at Discharge: Good - DIAGNOSES Admission Diagnoses: 40 WEEKS GESTATION LABOR Discharge Diagnoses with Status of Each Condition: CARE STATUS POST VAGINAL DELIVERY - HPI History of Present Illness: HPI: This 27yo @ 40.1wks gestation phones through the answering service at approximately 2250 on 10/31/2018 with c/o large amount of bright red vaginal bleeding. She was instructed to present to labor and delivery. She arrived to [facility] at 2350 and was noted to be 2-3/70/unengaged, posterior, vertex. No obvious vaginal bleeding noted and pt states with initial call she thought the bleeding appeared more since it was in the toilet but it did make her nervous. She reports +FM and denies leakage of fluid. She denies [place], visual disturbances, RUQ or epigastric pain. She was found to contract every 2 minutes with soft resting tone and pt rates the contractions 7/10 on a pain scale. FHR baseline 150s, moderate variability, + accels, no decels. Recheck 1 hour later reveals unchanged cervix. Contraction frequency decreased to every 4-6 and patient requests labor augmentation secondary to full term gestation, discomfort, and current weather conditions. In addition, she requests an epidural prior to initiation of any further intervention. She was admitted to [facility] for active manag ement. She has received regular care with [facility] through the duration of her . She presented at 8wks gestation at which time her dating was confirmed by limited bedside ultrasound which was c/w LMP dating. Her has been uncomplicated. Dating criteria: 1. LMP: Sure - 02/17/2018 2. First ultrasound: 03/19/2018 @ 8wks gestation - agrees OB Hx: G1: 2011, Female, 7lbs 6 oz, G2: Current PMHx: No significant Surgical Hx: none Family Hx: no significant Social hx: never smoker, no ETOH or IVDA. Works at [employer]. . Last pap 08/09/2018 WNL, GC/CT negative. No Hx abnormal. Medications: vitamin Allergies: NKDA Immunizations: Influenza 06/14/2018 Tdap 08/09/2018 - CONSULTS | PROCEDURES Procedures: PITOCIN AUGMENTATION OF LABOR EPIDURAL ANESTHESIA IN LABOR LOW VACUUM ASSISTED VAGINAL DELIVERY 2ND DEGREE MIDLINE PERINEAL LACERATION REPAIR RIGHT VAGINAL SIDEWALL LACERATION REPAIR - HOSPITAL COURSE Hospital Course: The patient was noted to have several episodes of vaginal bleeding during labor prior to delivery consistent with mild placental abruption. Maternal and status were reassuring during labor and patient was able to delivery via low vacuum assisted a viable male infant with good scores the afternoon of 11/01/18. She had 500 mL EBL pre-delivery and 300 mL post-delivery for a total of 800 mL EBL. HCT normal. See record for weight. She delivered over a 2nd degree midline perineal laceration and a small right vaginal sidewall laceration that were both repaired in routine fashion. She had an uncomplicated course and is being discharged on PPD #2. She will follow up with the admitting [facility] in 6 weeks. - ALLERGIES Allergies/Adverse Reactions: Allergies Allergy/AdvReac Type Severity Reaction Status Date / Time No Known Drug Allergies Allergy Verified 11/01/18 04:00 - MEDICATIONS Home Medications Other | Comments: Prescriptions given: Motrin 800 mg #40: 1 p.o. q8h WF prn Colace 100 mg #20: 1 p.o. q12 h prn constipation - PHYSICAL EXAM AT DISCHARGE General Appearance: positive: No acute distress, Alert (ABD SNT), Severe distress (ABD SNT, Ux Firm U-4, normal lochia, MS/NM N/C with no calf pain) Peripheral Pulses: positive: 2+ Abdomen: positive: Non-tender Skin: positive: Color nml, No rash Extremities: positive: Non-tender, No pedal edema Neurologic/Psychiatric: positive: Oriented x3, CN's nml (2-12) Physical Exam Other/Comments: UX Firm U-4 and NT - LABS Result Diagrams: 11/02/18 05:26 - FOLLOW UP Follow Up: Follow up with Mary Krause CNM in 6 weeks - TIME SPENT Time Spent in Discharge (Minutes): 45"
[2018-11-03] MEDS: DOCUSATE SODIUM 100 MG CAPSULE PO SCH (11:32)
[2018-11-03 12:39] VITALS: BP 113/74
--- NOTE | 2018-11-03 13:15 | Labor Flowsheet ---
Labor Flowsheet Datetime Report Generated by CPN: 11/03/2018 13:15 Datetime: 11/03/2018 12:39 Pulse: 81 SpO2 (%): 100 Datetime: 11/03/2018 12:38 VITAL SIGNS NBP Sys/Sandy/Mean (mmHg): 113 : 74 : 82 Datetime: 11/01/2018 17:01 Vacuum: Off Datetime: 11/01/2018 17:00 Stage of : Labor Monitor Interventions for FHR: FSE Number @ Datetime: 11/01/2018 16:59 LaborFlag: Labor Datetime: 11/01/2018 16:57 Pushing Progress: Descent with Pushing; Pushing Effectively with Contractions Datetime: 11/01/2018 16:45 ASSESSMENT A Monitor Mode: Internal Scalp Electrode Variability: Minimal - Undetectable to <=5 bpm Decelerations: Variable Actions for Decelerations: Oxygen Applied Category: Category II Comments: Decels to 80's with pushing Datetime: 11/01/2018 16:44 Stage 2 Comments: slow progress Datetime: 11/01/2018 16:38 Station: 2 Vaginal Exam Comments: with pushing Pushing Position: Pushing Lithotomy Datetime: 11/01/2018 16:22 Anesthesia Comments: epidural pump off per MD Datetime: 11/01/2018 16:15 FHR Baseline Rate : 150 Datetime: 11/01/2018 16:04 VAGINAL EXAM Dilatation (cm): 10.0 Exam by: Sharon Vaginal Bleeding: Normal Show Cervix, Consistency: Soft STAGE 2 Pushing: Coached on Pushing Datetime: 11/01/2018 16:01 I/O Interventions: Purcell Discontinued Patient Care Comments: 275 urine Preparation for Delivery: IUPC Removed Intact Datetime: 11/01/2018 16:00 Accelerations: 10X10 Datetime: 11/01/2018 15:57 Provider Notified (Name): Dt sharon here for delivery Datetime: 11/01/2018 15:54 COMMUNICATION Communication: Provider at Bedside Datetime: 11/01/2018 15:45 UTERINE ACTIVITY Monitor Mode: Internal Frequency (min): 3 Quality: Strong Duration (sec): 50 Pattern: Normal: <= 5 Contractions in 10 Minutes Resting Tone (Palpate): Relaxed Resting Tone IUP (mmHg): 20 [place] Units (mmHg): 240 Pitocin Checklist: At Least 1 Acceleration of 15 bpm x 15 Seconds in 30 Minutes or Adequate Variabi lity Contraction Comments: Pushing FHR Baseline Changes: No Baseline Change Oxygen Method: Room Air Datetime: 11/01/2018 15:29 Intensity IUP (mmHg): 55 Datetime: 11/01/2018 15:19 Provider Reviewed Strip: No Notification Reason: Status Update Datetime: 11/01/2018 15:16 Effacement (%): 100 Datetime: 11/01/2018 14:29 Patient Position/Activity: Left Lateral Datetime: 11/01/2018 14:04 ANESTHESIA Anesthesia Plans: Epidural Anesthesia Level Check: T10- Umbilicus Datetime: 11/01/2018 13:45 Pain Presence: Intermittent Pain Type: Contraction Pain Location: Abdomen Pain Coping: Requesting Pain Medication or Epidural Pain Assessment Comments: Report to Dr. Rosen, anesthesia called Datetime: 11/01/2018 13:39 Consults: Anesthesia Datetime: 11/01/2018 13:29 PAIN Pain Scale: 6 Pain Goal: 3 Comfort Measures: Breathing/Relaxation Datetime: 11/01/2018 13:20 Cervix, Position: Midposition Datetime: 11/01/2018 13:14 [place] UNITS (Computed) IUPC Average Intensity: 70 IUPC Average Resting Tone: 20 Datetime: 11/01/2018 12:45 Temperature (C): 37.0 Datetime: 11/01/2018 12:06 Membranes Ruptured Date/Time: 11/01/2018 11:16 Station Vacuum/Forceps Applied: +4 Datetime: 11/01/2018 11:16 Membrane Status: Ruptured Membranes Rupture Method: Artificial Amniotic Fluid Color: Bloody Amniotic Fluid Amount: Moderate Amniotic Fluid Odor: Normal Datetime: 11/01/2018 10:33 MEDICATIONS Pitocin (milliunits): Increased to @ 12 Datetime: 11/01/2018 09:56 PATIENT CARE IV/Blood Work: IV Started; Labs Drawn with IV Start; IV Saline Locked Datetime: 11/01/2018 09:45 Monitor Interventions for UA: IUPC Inserted Datetime: 11/01/2018 09:23 Hygiene: Trina Care; Underpad Changed; Peripad Changed Datetime: 11/01/2018 09:12 Membrane Comments: Dark red bleeding noted Communication Comments: Morghan at the bedside. SVE, IUPc place. Would like to push the Pitocin u ntil 200 MVU then reassess the cervix 2 hours after reaching adequate strength. Datetime: 11/01/2018 08:00 MATERNAL ASSESSMENT Level of Consciousness: Fully Conscious DTR's/Clonus: DTRs Absent Headache: Denies Breath Sounds, Left: Clear and Equal Breath Sounds, Right: Clear and Equal Nausea/Vomiting: Denies RUQ Epigastric Pain: Denies Procedures: Sterile Vag Exam Plan of Care: Plan of Care Discussed Labor/Induction: Augmentation Pain Management: Epidural Medications: Pitocin Related: Maternal Physical Changes Datetime: 11/01/2018 05:59 TEACHING Instructional Method: Verbal Unit Routine: Medications Datetime: 11/01/2018 05:41 Respirations: 14 Datetime: 11/01/2018 05:10 Magnesium/Antihypertensives: Ephedrine IV (mg) @ 10 Datetime: 11/01/2018 02:44 Medication Comments: pitocin at 1 mu Datetime: 11/01/2018 02:32 Epidural Procedure: Loading Dose Datetime: 11/01/2018 02:16 Epidural Positioning: Sitting Datetime: 11/01/2018 01:55 Temperature Route: Oral Datetime: 11/01/2018 01:23 Presentation 'A': Cephalic Datetime: 11/01/2018 00:45 Pain Relief Measures: Comfort Measures
== END 2018-11-03 13:05 | disposition home or self-care (01) | DRG 807 ==
LOC: WFO 23:35 → FBP 23:36 → WFO 11-01 00:15 → FBP 11-01 00:20
PROVIDERS: ADMIT Nurse Practitioner Obstetrics & Gynecology; ATTEND Nurse Practitioner Obstetrics & Gynecology
PROC: 10D07Z6 Extraction of Products of Conception, Vacuum, Via Natural or Artificial Opening (ICD-10-PCS; principal; 2018-11-01)
DX: O45.93 Premature separation of placenta, unspecified, third trimester (principal); Z37.0 Single live birth; Z3A.40 40 weeks gestation of pregnancy; O70.1 Second degree perineal laceration during delivery; O76 Abnormality in fetal heart rate and rhythm complicating labor and delivery
CPT/HCPCS: 36415; 85025; 86850; 86900; 86901; 86920; 99213

== ENCOUNTER 2019-01-11 09:29 | Outpatient (CLI) | payer OTHER, MEDICAID | END 2019-01-11 09:30 | disposition home or self-care (01) | LOC: LAB.WCP 09:29 | PROVIDERS: ATTEND Registered Nurse | DX: Z00.00 Encounter for general adult medical examination without abnormal findings (principal) | CPT/HCPCS: 36415; 84443 ==

== ENCOUNTER 2019-01-18 08:57 | Outpatient (CLI) | payer OTHER, MEDICAID ==
[2019-01-18 12:46] LABS: T4 (THYROXINE) 12.3 ug/dL (6.09-12.23)
[2019-01-18 12:52] LABS: FREE T4 (FREE THYROXINE) 1.25 ng/dL (0.58-1.64)
== END 2019-01-18 08:58 | disposition home or self-care (01) ==
LOC: LAB.WCP 08:57
PROVIDERS: ATTEND Registered Nurse
DX: E05.90 Thyrotoxicosis, unspecified without thyrotoxic crisis or storm (principal)
CPT/HCPCS: 36415; 84436; 84439; 84443; 84481

== ENCOUNTER 2019-01-20 09:03 | Outpatient (CLI) | payer OTHER, MEDICAID ==
[2019-01-20 13:50] LABS: ALBUMIN 3.8 g/dL (3.2-5.5); BILIRUBIN,TOTAL 0.5 mg/dL (0.2-1.0); CALCIUM 8.7 mg/dL (8.5-10.3); CREATININE 0.4 mg/dL (0.4-1.0); TOTAL PROTEIN 7.6 g/dL (6.7-8.2)
[2019-01-20 14:00] LABS: BASOPHILS # (AUTO) 0.1 10^3/uL (0.0-0.1); BASOPHILS % (AUTO) 0.6 %; EOSINOPHILS # (AUTO) 0.3 10^3/uL (0.0-0.7); EOSINOPHILS % (AUTO) 2.7 %; HGB - HEMOGLOBIN 13.6 g/dL (12.0-16.0); LYMPHOCYTES # (AUTO) 2.8 10^3/uL (1.5-3.5); LYMPHOCYTES % (AUTO) 29.5 %; MEAN CORPUSCULAR HEMOGLOBIN 31.8 pg (27.0-31.0); MEAN CORPUSCULAR HGB CONC 34.4 g/dL (32.0-36.0); MEAN CORPUSCULAR VOLUME 92.6 fL (81.0-99.0); MEAN PLATELET VOLUME 7.9 fL (7.9-10.8); MONOCYTES # (AUTO) 0.4 10^3/uL (0.0-1.0); MONOCYTES % (AUTO) 4.7 %; NEUTROPHILS % (AUTO) 62.5 %; PLT - PLATELET COUNT 339 10^3/uL (130-450); RED BLOOD COUNT 4.27 10^6/uL (4.20-5.40); RED CELL DISTRIBUTION WIDTH 11.7 % (12.0-15.0); WHITE BLOOD COUNT 9.6 x10^3/uL (4.8-10.8)
== END 2019-01-20 09:04 | disposition home or self-care (01) ==
LOC: LAB.WCP 09:03
PROVIDERS: ATTEND Registered Nurse
DX: E05.90 Thyrotoxicosis, unspecified without thyrotoxic crisis or storm (principal)
CPT/HCPCS: 36415; 80053; 84443; 85025

== ENCOUNTER 2020-03-05 08:56 | Outpatient (CLI) | payer MEDICAID, OTHER ==
[2020-03-05 12:34] LABS: BASOPHILS % (AUTO) 0.7 %; EOSINOPHILS # (AUTO) 0.4 10^3/uL (0.0-0.7); EOSINOPHILS % (AUTO) 6.1 %; LYMPHOCYTES # (AUTO) 2.2 10^3/uL (1.5-3.5); LYMPHOCYTES % (AUTO) 36.7 %; MEAN CORPUSCULAR HEMOGLOBIN 30.1 pg (27.0-31.0); MEAN CORPUSCULAR HGB CONC 32.8 g/dL (32.0-36.0); MEAN CORPUSCULAR VOLUME 91.8 fL (81.0-99.0); MEAN PLATELET VOLUME 9.8 fL (7.9-10.8); MONOCYTES # (AUTO) 0.3 10^3/uL (0.0-1.0); MONOCYTES % (AUTO) 5.4 %; NEUTROPHILS % (AUTO) 50.9 %; PLT - PLATELET COUNT 372 10^3/uL (130-450); RED BLOOD COUNT 4.98 10^6/uL (4.20-5.40); RED CELL DISTRIBUTION WIDTH 12.3 % (12.0-15.0); WHITE BLOOD COUNT 5.9 x10^3/uL (4.8-10.8)
[2020-03-05 12:49] LABS: ALBUMIN 4.5 g/dL (3.2-5.5); ALBUMIN/GLOBULIN RATIO 1.2 (1.0-2.2); BILIRUBIN,TOTAL 0.5 mg/dL (0.2-1.0); CALCIUM 9.2 mg/dL (8.5-10.3); CREATININE 0.4 mg/dL (0.4-1.0); TOTAL PROTEIN 8.4 g/dL (6.7-8.2)
== END 2020-03-05 23:59 ==
LOC: LAB.WCP 08:56
PROVIDERS: ATTEND Nurse Practitioner Family
DX: E05.90 Thyrotoxicosis, unspecified without thyrotoxic crisis or storm (principal)
CPT/HCPCS: 36415; 80053; 84443; 85025

== ENCOUNTER 2021-03-22 08:00 | Outpatient (CLI) | payer OTHER | END 2021-03-22 23:59 | disposition home or self-care (01) | LOC: LAB.N 08:00 | PROVIDERS: ATTEND Family Medicine | DX: N39.0 Urinary tract infection, site not specified (principal) | CPT/HCPCS: 87086; 87181 ==

== ENCOUNTER 2021-11-25 09:10 | Outpatient (CLI) | payer OTHER ==
[2021-11-25 12:59] LABS: BASOPHILS # (AUTO) 0.1 10^3/uL (0.0-0.1); BASOPHILS % (AUTO) 0.8 %; EOSINOPHILS # (AUTO) 0.3 10^3/uL (0.0-0.7); EOSINOPHILS % (AUTO) 4.6 %; HCT - HEMATOCRIT 40.2 % (37.0-47.0); HGB - HEMOGLOBIN 13.6 g/dL (12.0-16.0); LYMPHOCYTES % (AUTO) 40.9 %; MEAN CORPUSCULAR HGB CONC 33.8 g/dL (32.0-36.0); MEAN CORPUSCULAR VOLUME 91.6 fL (81.0-99.0); MEAN PLATELET VOLUME 10.1 fL (7.9-10.8); MONOCYTES # (AUTO) 0.4 10^3/uL (0.0-1.0); MONOCYTES % (AUTO) 5.3 %; NEUTROPHILS # (AUTO) 3.5 10^3/uL (1.5-6.6); NEUTROPHILS % (AUTO) 48.3 %; PLT - PLATELET COUNT 349 10^3/uL (130-450); RED BLOOD COUNT 4.39 10^6/uL (4.20-5.40); RED CELL DISTRIBUTION WIDTH 11.8 % (12.0-15.0); WHITE BLOOD COUNT 7.2 x10^3/uL (4.8-10.8)
[2021-11-25 13:20] LABS: ALBUMIN 4.1 g/dL (3.2-5.5); ALBUMIN/GLOBULIN RATIO 1.3 (1.0-2.2); ALKALINE PHOSPHATASE 45 IU/L (42-121); ALT ALANINE AMINOTRANSFERASE 12 IU/L (10-60); AST ASPARTATE AMINOTRANSFERASE 14 IU/L (10-42); BILIRUBIN,TOTAL 0.9 mg/dL (0.2-1.0); BUN - BLOOD UREA NITROGEN 8 mg/dL (6-20); CALCIUM 8.7 mg/dL (8.5-10.3); CARBON DIOXIDE - CO2 26 mmol/L (21-32); CHLORIDE 102 mmol/L (101-111); CHOL/HDL RATIO 3.5 (<4.4); CHOLESTEROL 221 mg/dL; CREATININE 0.5 mg/dL (0.4-1.0); GFR - MDRD 144 (>89); GLUCOSE 83 mg/dL (70-100); HDL CHOLESTEROL 63 mg/dL; LDL CHOLESTEROL,CALCULATED 134 mg/dL; LDL/HDL RATIO 2.1 (<4.4); POTASSIUM 3.7 mmol/L (3.5-5.0); SODIUM 135 mmol/L (135-145); TOTAL PROTEIN 7.2 g/dL (6.7-8.2); TRIGLYCERIDES 119 mg/dL; VLDL CHOLESTEROL 24 mg/dL
[2021-11-25 13:28] LABS: THYROID STIMULATING HORMONE 1.55 uIU/mL (0.34-5.60)
[2021-11-25 13:30] LABS: FREE T4 (FREE THYROXINE) 0.72 ng/dL (0.58-1.64)
== END 2021-11-25 09:11 | disposition home or self-care (01) ==
LOC: LAB.N 09:10
PROVIDERS: ATTEND Nurse Practitioner
DX: E05.90 Thyrotoxicosis, unspecified without thyrotoxic crisis or storm (principal); R53.83 Other fatigue
CPT/HCPCS: 36415; 80053; 80061; 83721; 84439; 84443; 85025

== ENCOUNTER 2023-01-26 08:34 | Outpatient (CLI) | payer OTHER ==
[2023-01-26 14:07] LABS: THYROID STIMULATING HORMONE 1.14 uIU/mL (0.34-5.60)
== END 2023-01-26 08:35 | disposition home or self-care (01) ==
LOC: LAB.N 08:34
PROVIDERS: ATTEND Nurse Practitioner
DX: E05.90 Thyrotoxicosis, unspecified without thyrotoxic crisis or storm (principal)
CPT/HCPCS: 36415; 84443